=== PATIENT | female | born 1965 | race Caucasian/White ===

== ENCOUNTER 2022-02-04 05:15 | Observation (INO) | payer BC ==
[2022-02-04] VITALS (13 sets, daily range): BP systolic 109–126; BP diastolic 61–72
[~2022-02-04] VITALS: Ht 165.1 cm; Wt 107.0 kg
[~2022-02-04 05:15] MED LIST: BUPR150T8 PO; DOCO1CAP4 PO; DOCU-109 PO; IBUP-1060 PO; NAPR-699 PO; OXYC1TAB15 PO; ZOLP5TAB PO
--- NOTE | 2022-02-04 05:19 | NUR ---
0505 admitted from [facility] ,arrived per EMT . admission care done. POC discussed with patient and verbalized understanding.
[2022-02-04] MEDS ORDERED: MORPHINE SULFATE 2 MG/ML INJ. IV PRN (06:00)
[2022-02-04] MEDS ORDERED: ONDANSETRON PF 4 MG/2 ML VIAL. IVP PRN (06:00)
[2022-02-04] MEDS ORDERED: IV NORMAL SALINE 1000ML BAG 1,000 ML IV SCH (06:30)
[2022-02-04] MEDS ORDERED: ATOR20TA58 PO (07:19)
[2022-02-04] MEDS ORDERED: LISD30CA5 PO (07:20)
[2022-02-04] MEDS ORDERED: CETI10CA PO (07:21)
[2022-02-04] MEDS ORDERED: CALC500T30 PO (07:25)
[2022-02-04] MEDS ORDERED: MULT-245 PO (07:25)
[2022-02-04] MEDS ORDERED: PROCHLORPERAZINE 10 MG/2 ML VIAL. IVP PRN (09:45)
[2022-02-04] MEDS ORDERED: IV RINGERS,LACTATED 1000ML 1,000 ML IV SCH (09:45)
[2022-02-04] MEDS ORDERED: fentaNYL PF VIAL 100 MCG/2 ML VIAL IVP PRN ×2 (09:45)
[2022-02-04] MEDS ORDERED: HYDROmorphone 2 MG/ML INJ. IVP PRN (09:45)
--- NOTE | 2022-02-04 09:48 | PDOC2 ---
CONSULT Date of Consult Date of Consult DATE: 02/04/22 TIME: 09:45 Reason for Consult Reason for Consult: Right lower quadrant abdominal pain Referring Physician Referring Physician: Stanislav Identification/Chief Complaint Chief Complaint Abdominal pain Source Source: Chart review, Patient History of Present Illness Reason for Visit: 56-year-old female with complaints of right lower quadrant abdominal pain for the past 24 hours some nausea no vomiting. Came to the emergency department further evaluation CT scan shows signs consistent with acute appendicitis with dilated appendix and periappendiceal inflammation no abscess or phlegmon. Past Medical History Cardiovascular: No pertinent hx Pulmonary: No pertinent hx GI: No pertinent hx Heme/Onc: No pertinent hx Hepatobiliary: No pertinent hx Psych: No pertinent hx Rheumatologic: No pertinent hx Infectious disease: No pertinent hx ENT: No pertinent hx Renal/: No pertinent hx Endocrine: No pertinent hx Dermatology: No pertinent hx Past Surgical History Past Surgical History: Cholecystectomy, Hysterectomy Family History Family History: No Significant Social History No ALCOHOL: rare Drugs: None Lives: with Family Current Medications Current Medications Current Medications Sodium Chloride 1,000 ml @ 100 mls/hr Q10H IV Last administered on 02/04/22at 06:29; Start 02/04/22 at 06:30; Stop 02/04/22 at 16:29 Ondansetron HCl (Zofran) 4 mg PRN Q6HRS PRN IVP NAUSEA/VOMITING 1st choice; Start 02/04/22 at 06:00 Morphine Sulfate (Morphine Sulfate) 2 mg PRN Q1HR PRN IV SEVERE PAIN 7-10 Last administered on 02/04/22at 09:40; Start 02/04/22 at 06:00 Fentanyl Citrate (Fentanyl 2ml Vial) 25 mcg PRN Q5MIN PRN IVP MILD PAIN 1-3; Start 02/04/22 at 09:45; Stop 02/05/22 at 09:44 Fentanyl Citrate (Fentanyl 2ml Vial) 50 mcg PRN Q5MIN PRN IVP MODERATE PAIN 4- 6; Start 02/04/22 at 09:45; Stop 02/05/22 at 09:44 Morphine Sulfate (Morphine Sulfate) 1 mg PRN Q10MIN PRN IVP SEVERE PAIN 7-10; Start 02/04/22 at 09:45; Stop 02/05/22 at 09:44 Ringer's Solution 1,000 ml @ 30 mls/hr Q24H IV ; Start 02/04/22 at 09:45; Stop 02/04/22 at 21:44 Hydromorphone HCl (Dilaudid) 0.5 mg PRN Q10MIN PRN IVP SEVERE PAIN 7-10, 2nd CHOICE; Start 02/04/22 at 09:45; Stop 02/05/22 at 09:44 Prochlorperazine Edisylate (Compazine) 5 mg PACU PRN PRN IVP NAUSEA, MRX1; Start 02/04/22 at 09:45; Stop 02/05/22 at 09:44 Active Scripts Active Reported Calcium (Calcium Carbonate) 500 Mg Tablet 1 Tab PO TID 30 Days Multi Vitamin Daily (Multivitamin) 1 Each Tablet 1 Tab PO DAILY 30 Days Zyrtec (Cetirizine Hcl) 10 Mg Capsule 10 Mg PO SAE Vyvanse (Lisdexamfetamine Dimesylate) 30 Mg Capsule 1 Cap PO DAILYWBKFT MDD 1 Capsule(s) 5 Days Atorvastatin Calcium 20 Mg Tablet 1 Tab PO DAILY Colace (Docusate Sodium) 100 Mg Capsule 100 Mg PO BID Wellbutrin Sr (Bupropion Hcl) 150 Mg Tablet.er 150 Mg PO DAILY Allergies Allergies: Coded Allergies: No Known Drug Allergies (Unverified , 01/17/14) ROS General: No: Chills, Night Sweats, Fatigue, Malaise, Appetite, Other PSYCHOLOGICAL ROS: No: Anxiety, Behavioral Disorder, Concentration difficultie, Decreased libido, Depression, Disorientation, Hallucinations, Hostility, Irritablity, Memory difficulties, Mood Swings, Obsessive thoughts, Physical abuse, Sexual abuse, Sleep disturbances, Suicidal ideation, Other Eyes: No Blurry vision, No Decreased vision, No Double vision, No Dry eyes, No Excessive tearing, No Eye Pain, No Itchy Eyes, No Loss of vision, No Photophobia, No Scotomata, No Uses contacts, No Uses glasses, No Other HEENT: No: Heacaches, Visual Changes, Hearing change, Nasal congestion, Nasal discharge, Oral lesions, Sinus pain, Sore Throat, Epistaxis, Sneezing, Snoring, Tinnitus, Vertigo, Vocal changes, Other ALLERGY AND IMMUNOLOGY: No: Hives, Insect Bite Sensitivity, Itchy/Watery Eyes, Nasal Congestion, Post Nasal Drip, Seasonal Allergies, Other Hematological and Lymphatic: No: Bleeding Problems, Blood Clots, Blood Transfusions, Brusing, Night Sweats, Pallor, Swollen Lymph Nodes, Other ENDOCRINE: No: Breast Changes, Galactorrhea, Hair Pattern Changes, Hot Flashes, Malaise/lethargy, Mood Swings, Palpitations, Polydipsia/polyuria, Skin Changes, Temperature Intolerance, Unexpected Weight Changes, Other Respiratory: No: Cough, Hemoptysis, Orthopnea, Pleuritic Pain, Shortness of breath, SOB with excertion, Sputum Changes, Stridor, Tachypnea, Wheezing, Other Cardiovascular: No Chest Pain, No Palpitations, No Orthopnea, No Paroxysmal Noc. Dyspnea, No Edema, No Lt Headedness, No Other Gastrointestinal: Yes Nausea, Yes Abdominal Pain Genitourinary: No Dysuria, No Frequency, No Incontinence, No Hematuria, No Retention, No Discharge, No Urgency, No Pain, No Flank Pain, No Other, No , No , No , No , No , No , No Musculoskeletal: No Gait Disturbance, No Joint Pain, No Joint Stiffness, No Joint Swelling, No Muscle Pain, No Muscular Weakness, No Pain In:, No Swelling In:, No Other Neurological: No Behavorial Changes, No Bowel/Bladder ControlChng, No Confusion, No Dizziness, No Gait Disturbance, No Headaches, No Impaired Coord/balance, No Memory Loss, No Numbness/Tingling, No Seizures, No Speech Problems, No Tremors, No Visual Changes, No Weakness, No Other Skin: No Dry Skin, No Eczema, No Hair Changes, No Lumps, No Mole Changes, No Mottling, No Nail Changes, No Pruritus, No Rash, No Skin Lesion Changes, No Other, No Acne Physical Exam General: Alert, Oriented X3, Cooperative, mild distress HEENT: Atraumatic, PERRLA, EOMI Lungs: Clear to auscultation, Normal air movement Heart: Regular rate, No murmurs Abdomen: Normal bowel sounds, Soft, Other (Tender to palpation right lower quadrant) Extremities: No edema Skin: No significant lesion Neuro: Normal speech Psych/Mental Status: Mental status NL Vitals VITALS Vital Signs Date Time Temp Pulse Resp B/P (MAP) Pulse Ox O2 Delivery O2 Flow Rate FiO2 02/04/22 09:40 Room Air 02/04/22 07:29 97.6 77 18 110/69 (83) 95 97.6 Assessment/Plan Assessment/Plan Acute appendicitis plan laparoscopic appendectomy CHARLES RIVERS MD February 04, 2022 09:48
[2022-02-04] MEDS ORDERED: MIDAZOLAM HCL/PF 2 MG/2 ML VIAL. ONE (10:04)
[2022-02-04] MEDS ORDERED: fentaNYL PF VIAL 100 MCG/2 ML VIAL ONE (10:04)
[2022-02-04] MEDS ORDERED: SUCCINYLCHOLINE 200 MG/10 ML VIAL. ONE (10:05)
[2022-02-04] MEDS ORDERED: NEOSTIGMINE METHYLSULFATE 5 MG/5 ML SYRINGE. ONE (10:05)
[2022-02-04] MEDS ORDERED: ROCURONIUM 50 MG/5 ML VIAL. ONE ×2 (10:05→12:15)
[2022-02-04] MEDS ORDERED: GLYCOPYRROLATE 1 MG/5 ML VIAL. ONE (10:05)
[2022-02-04] MEDS ORDERED: ONDANSETRON PF 4 MG/2 ML VIAL. ONE ×2 (10:07→12:15)
[2022-02-04] MEDS ORDERED: PROPOFOL 10 MG/ML (20ML) VIAL. IV ONE ×2 (10:07→12:15)
[2022-02-04] MEDS ORDERED: DEXAMETHASONE SOD PHOS 4 MG/ML VIAL ONE ×2 (10:07→12:15)
--- NOTE | 2022-02-04 10:42 | HP ---
DATE OF SERVICE: 02/04/2022 ADMIT DATE: 02/04/2022 CHIEF COMPLAINT: Abdominal pain. HISTORY OF PRESENT ILLNESS: The patient is a pleasant 56-year-old female who has had multiple abdominal surgeries including a bariatric surgery. She basically presented last night with abdominal pain. We did a CAT scan. She has got appendicitis. She has now been admitted. We have consulted Dr. Curiel. She is going to surgery later today. PAST MEDICAL HISTORY: Bariatric surgery, hyperlipidemia, depression, anxiety, constipation, allergic rhinitis. ALLERGIES: None. FAMILY HISTORY: Diabetes. SOCIAL HISTORY: She does not drink, smoke or take drugs. She is . MEDICATIONS: Reviewed, please refer to the [facility]. REVIEW OF SYSTEMS: GENERAL: No history of weight change, weakness or fevers. SKIN: No bruising, hair changes or rashes. EYES: No blurred, double or loss of vision. NOSE AND THROAT: No history of nosebleeds, hoarseness or sore throat. HEART: No history of palpitations, chest pain or shortness of breath on exertion. LUNGS: Denies cough, hemoptysis, wheezing or shortness of breath. GASTROINTESTINAL: She complains of abdominal pain. GENITOURINARY: No history of frequency, urgency, hesitancy or nocturia. NEUROLOGIC: Denies history of numbness, tingling, tremor or weakness. PSYCHIATRIC: No history of panic, anxiety or depression. ENDOCRINE: No history of heat or cold intolerance, polyuria or polydipsia. EXTREMITIES: Denies muscle weakness, joint pain, pain on walking or stiffness. PHYSICAL EXAMINATION: VITALS: Within normal limits and are stable. GENERAL: No apparent distress. Alert and oriented. HEENT: Normal cephalic atraumatic, external auditory canals are patent. EYES: Extraocular muscles are intact, pupils are equally round and reactive to light and accommodation. MUSCULOSKELETAL: Well developed, well nourished, good range of motion. ENDOCRINE: No thyromegaly was palpated. LYMPHATICS: No cervical chain or axillary nodes were noted. HEMATOPOIETIC: No bruising. NECK: Supple, no JVD, no thyromegaly was noted. LUNGS: Clear to auscultation in all lung coto without rhonchi or wheezing. HEART: RRR, S1, S2 present. Peripheral pulses intact, no obvious murmurs were noted. ABDOMEN: She has decreased bowel sounds and she is tender in the right lower quadrant. EXTREMITIES: Without any cyanosis, clubbing, or edema. Pedal pulses intact, Homans sign is negative. NEUROLOGIC: Normal speech, normal tone. A and O x 3, moves all extremities, no obvious focal deficits. PSYCHIATRIC: Normal affect, normal mood. Stable. SKIN: No ulcerations or rashes, good skin turgor, no jaundice. VASCULAR: Good capillary refill, neurovascular bundle appears to be intact. LABORATORY DATA: Labs are pending. CT of the abdomen shows appendicitis. ASSESSMENT AND PLAN: Appendicitis. The patient will be admitted. We will consult Dr. Curiel. She is going to surgery later today. P.r.n., pain meds, IV fluids, p.r.n. Zofran. After surgery, we hope to resume her home meds. DVT prophylaxis. Full code. RICKY/COURTNEY DR: Aleta TID: [id number]
[2022-02-04] MEDS ORDERED: BUPIVACAINE-EPI 0.25%-1:200000 MPF 30 ML VIAL. ONE (11:17)
[2022-02-04] MEDS ORDERED: BUPIVACAINE-EPI 0.25%-1:200000 MPF 30 ML VIAL. INJ ONE (11:38)
[2022-02-04] MEDS ORDERED: DEXMEDETOMIDINE 200 MCG/2 ML VIAL. ONE (11:39)
[2022-02-04] MEDS: DOCUSATE SODIUM 100 MG CAPSULE. PO SCH ×2 (12:00→20:51)
[2022-02-04] MEDS ORDERED: PIPERACILLIN/TAZOBACTAM 3.375 GM in IV NORMAL SALINE 50ML 50 ML IV ONE (12:00)
--- NOTE | 2022-02-04 12:13 | PDOC4 ---
Operative Note Operative Note Date: February 04, 2022 at 12:10 PM Preoperative diagnosis: Acute appendicitis Postoperative diagnosis: Same Procedure: Laparoscopic appendectomy Surgeon: Moisés Specimen: Appendix Dictation: Patient is a 56-year-old female was mated to the hospital with right lower quadrant abdominal pain a CT scan showing signs consistent with acute appendicitis. Procedure of laparoscopic appendectomy was explained to the patient detail risk benefits were also discussed including bleeding infection injury to intra-abdominal contents possible necessitating further open operations alternatives this procedure also discussed with the patient who seemed to understand and gave a verbal and written consent had procedure per formed. Patient was taken to the operating room placed in the supine position general anesthesia was initiated once patient was sleeping intubated her abdomen was prepped and draped usual sterile fashion using ChloraPrep. Area just below the umbilicus was injected with quarter percent Marcaine with epinephrine incision was made 11 blade scalpel and a varies needle was placed within the abdomen creating pneumoperitoneum once this was complete 12 mm port was placed and a 5 mm camera was placed within the abdomen which was inspected no other ab maladies were noted was noted that the appendix was retrocecal. 5 mm ports placed low in the midline and a 5 mm port was placed in the right midabdomen all under direct visualization. The appendix was grasped and retracted towards anterior abdominal wall a window was propagated through the mesoappendix at the base of the appendix with a [place] dissector this allowed for an Endo FILIPPO stapler to staple and transect the base of the appendix. Blunt dissection was used to dissect the appendix free from its retrocecal space. The mesenteric artery to the appendix was clipped with a 10 mm clip silver steward and transected with scissors. Once the appendix was freed up completely was placed in the Endo Catch bag removed and the umbilicus the right lower quadrant were irrigated and suctioned dry pelvis was irrigated and suctioned dry hemostasis deemed be ap propriate the pneumoperitoneum was reduced all ports were removed the fascial defect at the umbilicus was closed with a [id number] 0 Vicryl suture and the skin was reapproximated all port sites for subcuticular Monocryl Mastisol Steri-Strips and island dressings were applied. Patient was awakened and extubated in the operating room taken to recovery in stable condition all sponge instrument needle counts listed as correct estimated blood loss 20 mL CHARLES RIVERS MD February 04, 2022 12:13
[2022-02-04] MEDS ORDERED: LIDOCAINE 2% PF 5 ML VIAL. ONE (12:15)
[2022-02-04] MEDS ORDERED: KETOROLAC 30 MG/ML VIAL. ONE ×2 (12:15→12:16)
[2022-02-04] MEDS ORDERED: oxyCODONE/APAP 5/325 1 TAB TABLET PO PRN (12:15)
[2022-02-04] MEDS ORDERED: MORPHINE SULFATE 2 MG/ML INJ. ONE (12:24)
[2022-02-04] MEDS: MORPHINE SULFATE 2 MG/ML INJ. IVP PRN ×2 (12:28→12:45)
[2022-02-04] MEDS: CETIRIZINE HCL 10 MG TABLET. PO SCH (17:18)
[2022-02-04] MEDS: buPROPion XL 150 MG TAB.ER.24H. PO SCH (17:18)
[2022-02-04] MEDS: KETOROLAC 15 MG/ML VIAL. IVP SCH ×2 (17:18→20:50)
[2022-02-04] MEDS: CALCIUM CARBONATE 500 MG TABLET PO SCH ×2 (17:18→20:51)
[2022-02-04] MEDS: MULTIVITAMIN with MINERAL TABLET. PO SCH (17:18)
[2022-02-04] MEDS: oxyCODONE/APAP 5/325 1 TAB TABLET PO PRN (18:19)
--- NOTE | 2022-02-04 19:21 | NUR ---
Iv came out of LAC. Patient refuse a new IV. Informed pt some medication may need to be administer IV. She states that she would take meds PO
[2022-02-04] MEDS ORDERED: ATORVASTATIN CALCIUM 20 MG TABLET PO SCH (21:00)
--- NOTE | 2022-02-05 00:35 | NUR ---
Pt did not receive Toradol at 1748 d/t no IV access. Spoke with manager photography and day nurse to verify and was able to place new IV and give Toradol at 2049.
[2022-02-05] MEDS: KETOROLAC 15 MG/ML VIAL. IVP SCH ×2 (01:58→07:42)
[2022-02-05 03:06] VITALS: BP 116/65
[2022-02-05 06:28] VITALS: BP 142/76
[2022-02-05 07:40] LABS: BASO % 0 % (0-3); EOS % 1 % (0-3); HEMATOCRIT 34.8 % (36.0-47.0); HEMOGLOBIN 11.3 g/dL (12.0-15.5); LYMPH # 1.8 x10^3/uL (1.0-4.8); LYMPH % 21 % (24-48); MEAN CORPUSCULAR HEMOGLOBIN 29 pg (25-35); MEAN CORPUSCULAR HGB CONC 33 g/dL (31-37); MEAN CORPUSCULAR VOLUME 88 fL (79-100); MONO # 0.7 x10^3/uL (0.0-1.1); MONO % 8 % (0-9); NEUT % 70 % (31-73); PLATELET COUNT 253 x10^3/uL (140-400); RED BLOOD COUNT 3.94 x10^6/uL (3.50-5.40); RED CELL DISTRIBUTION WIDTH 12.7 % (11.5-14.5); WHITE BLOOD COUNT 8.5 x10^3/uL (4.0-11.0)
[2022-02-05] MEDS: buPROPion XL 150 MG TAB.ER.24H. PO SCH (07:42)
[2022-02-05] MEDS: DOCUSATE SODIUM 100 MG CAPSULE. PO SCH (07:43)
[2022-02-05] MEDS: CETIRIZINE HCL 10 MG TABLET. PO SCH (07:43)
[2022-02-05] MEDS: CALCIUM CARBONATE 500 MG TABLET PO SCH (07:43)
[2022-02-05] MEDS: MULTIVITAMIN with MINERAL TABLET. PO SCH (07:43)
[2022-02-05] MEDS ORDERED: NON FORMULARY ITEM (Lisdexamfetamine Dimesylate (Vyvanse) 1 CAP) PO SCH (08:00)
--- NOTE | 2022-02-05 08:01 | PDOC ---
SURGICAL PROGRESS NOTE DATE: 02/05/22 TIME: 08:00 Subjective tolerating diet sore Vital Signs Vital Signs Date Time Temp Pulse Resp B/P (MAP) Pulse Ox O2 Delivery O2 Flow Rate FiO2 02/05/22 06:28 98.9 76 18 142/76 (98) 97 Room Air 98.9 I&O Intake and Output 02/05/22 07:00 Intake Total 1330 ml Output Total 20 ml Balance 1310 ml Intake Oral 480 ml IV Total 850 ml Output Estimated Blood Loss 20 ml # Voids 4 General: Alert, Oriented X3, Cooperative Abdomen: Soft, Other (lap sites dry) Labs Laboratory Tests Test 02/05/22 07:00 White Blood Count 8.5 x10^3/uL (4.0-11.0) Red Blood Count 3.94 x10^6/uL (3.50-5.40) Hemoglobin 11.3 g/dL (12.0-15.5) Hematocrit 34.8 % (36.0-47.0) Mean Corpuscular Volume 88 fL (79-100) Mean Corpuscular Hemoglobin 29 pg (25-35) Mean Corpuscular Hemoglobin Concent 33 g/dL (31-37) Red Cell Distribution Width 12.7 % (11.5-14.5) Platelet Count 253 x10^3/uL (140-400) Neutrophils (%) (Auto) 70 % (31-73) Lymphocytes (%) (Auto) 21 % (24-48) Monocytes (%) (Auto) 8 % (0-9) Eosinophils (%) (Auto) 1 % (0-3) Basophils (%) (Auto) 0 % (0-3) Neutrophils # (Auto) 6.0 x10^3/uL (1.8-7.7) Lymphocytes # (Auto) 1.8 x10^3/uL (1.0-4.8) Monocytes # (Auto) 0.7 x10^3/uL (0.0-1.1) Eosinophils # (Auto) 0.0 x10^3/uL (0.0-0.7) Basophils # (Auto) 0.0 x10^3/uL (0.0-0.2) Laboratory Tests Test 02/05/22 07:00 White Blood Count 8.5 x10^3/uL (4.0-11.0) Red Blood Count 3.94 x10^6/uL (3.50-5.40) Hemoglobin 11.3 g/dL (12.0-15.5) Hematocrit 34.8 % (36.0-47.0) Mean Corpuscular Volume 88 fL (79-100) Mean Corpuscular Hemoglobin 29 pg (25-35) Mean Corpuscular Hemoglobin Concent 33 g/dL (31-37) Red Cell Distribution Width 12.7 % (11.5-14.5) Platelet Count 253 x10^3/uL (140-400) Neutrophils (%) (Auto) 70 % (31-73) Lymphocytes (%) (Auto) 21 % (24-48) Monocytes (%) (Auto) 8 % (0-9) Eosinophils (%) (Auto) 1 % (0-3) Basophils (%) (Auto) 0 % (0-3) Neutrophils # (Auto) 6.0 x10^3/uL (1.8-7.7) Lymphocytes # (Auto) 1.8 x10^3/uL (1.0-4.8) Monocytes # (Auto) 0.7 x10^3/uL (0.0-1.1) Eosinophils # (Auto) 0.0 x10^3/uL (0.0-0.7) Basophils # (Auto) 0.0 x10^3/uL (0.0-0.2) Problem List s/p appy ok to dc home Justicifation of Admission Dx: Justifications for Admission: Justification of Admission Dx: Yes CONNIE RODRIGUES FARE REGISTER REPAIRER February 05, 2022 08:01
[2022-02-05 11:00] VITALS: BP 107/58
[2022-02-05] MEDS ORDERED: OXYC1TAB15 PO (11:10)
--- NOTE | 2022-02-05 11:17 | PDOC3 ---
[facility]-Discharge Summary Date of Admission: Date of Admission: February 04, 2022 Date of Discharge: Date of Discharge: February 05, 2022 Admission Diagnosis: Problems: (1) Acute appendicitis Discharge Diagnosis: Discharge Diagnosis: same Consults: Consults: surgery Procedures: Procedures: Laparoscopic appendectomy Hospital Course: Hospital Course: Patient presented on February 04 with abdominal pain. Found to have acute appendicitis. Was given just antibiotics pain control and underwent surgical intervention with successful appendectomy. She did well postop. Tolerating diet pain well controlled with current medications. Okay to discharge home on February 05. Sent in pain prescription. Discussed with her follow-ups. Greater than 30-minute spent on this discharge 21 minutes advance care planning Disposition: Disposition/Orders: D/C to Home Activity: Activity: Resume previous activity Diet: Diet: Regular Medications: Home Meds Active Scripts Oxycodone/Apap 5-325 (PERCOCET 5-325 MG TABLET ) 1 Each Tablet, 1-2 TAB PO PRN Q4HRS PRN for PAIN for 10 Days, #25 TAB Prov:REBEKA HAMILTON MD 02/05/22 Reported Medications Calcium Carbonate (CALCIUM) 500 Mg Tablet, 1 TAB PO TID for supplement for 30 Days, #90 TAB 0 Refills 02/04/22 Multivitamin (MULTI VITAMIN DAILY) 1 Each Tablet, 1 TAB PO DAILY for supplements for 30 Days, #30 TAB 0 Refills 02/04/22 Cetirizine Hcl (ZYRTEC) 10 Mg Capsule, 10 MG PO carrington for allergy, CAP 02/04/22 Lisdexamfetamine Dimesylate (VYVANSE) 30 Mg Capsule, 1 CAP PO DAILYWBKFT for wt loss MDD 1 Capsule(s) for 5 Days, #5 CAP 0 Refills 02/04/22 Atorvastatin Calcium (ATORVASTATIN CALCIUM) 20 Mg Tablet, 1 TAB PO DAILY for anti cholesterol, #30 TAB 5 Refills 02/04/22 Docusate Sodium (COLACE) 100 Mg Capsule, 100 MG PO BID for stool softener 02/07/14 Bupropion Hcl (WELLBUTRIN SR) 150 Mg Tablet.er, 150 MG PO DAILY for depression 01/17/14 Scheduled Atorvastatin Calcium (Atorvastatin Calcium), 1 TAB PO DAILY, (Reported) Bupropion Hcl (Wellbutrin Sr), 150 MG PO DAILY, (Reported) Calcium Carbonate (Calcium), 1 TAB PO TID, (Reported) Cetirizine Hcl (Zyrtec), 10 MG PO carrington, (Reported) Docusate Sodium (Colace), 100 MG PO BID, (Reported) Lisdexamfetamine Dimesylate (Vyvanse), 1 CAP PO DAILYWBKFT, (Reported) Multivitamin (Multi Vitamin Daily), 1 TAB PO DAILY, (Reported) Scheduled PRN Oxycodone/Apap 5-325 (Percocet 5-325 Mg Tablet ), 1-2 TAB PO PRN Q4HRS PRN for PAIN Justicifation of Admission Dx: Justifications for Admission: Justification of Admission Dx: Yes REBEKA HAMILTON MD February 05, 2022 11:17
[2022-02-05] MEDS: oxyCODONE/APAP 5/325 1 TAB TABLET PO PRN (12:20)
== END 2022-02-05 12:35 | disposition home or self-care (01) ==
LOC: 4 NORTH 05:15 → INTOOBSV 05:15
PROVIDERS: ADMIT Internal Medicine; ATTEND Internal Medicine
DX: K35.80 Unspecified acute appendicitis (principal); F41.9 Anxiety disorder, unspecified; F32.9 Major depressive disorder, single episode, unspecified; E78.5 Hyperlipidemia, unspecified; J30.9 Allergic rhinitis, unspecified; K59.00 Constipation, unspecified; Z90.710 Acquired absence of both cervix and uterus; Z90.49 Acquired absence of other specified parts of digestive tract; Z98.84 Bariatric surgery status; Z79.899 Other long term (current) drug therapy; Z98.890 Other specified postprocedural states
CPT/HCPCS: 36415; 44970; 85025; 96374; 96375; 96376; A4314; A4364; A4930; A6219; G0378; G0379; J0330; J1100; J1885; J2250; J2270; J2405; J2543; J2704; J2710; J3010; J3490; J7030; A4452